=== PATIENT | female | born 1985 | race African-American/Black ===

== ENCOUNTER 2017-08-06 08:13 | Outpatient (CLI) | payer BC | END 2017-08-06 08:14 | disposition home or self-care (01) | LOC: BICULT 08:13 | PROVIDERS: ATTEND Internal Medicine Gastroenterology | DX: R10.13 Epigastric pain (principal) | CPT/HCPCS: 76700 ==

== ENCOUNTER 2018-09-04 09:47 | Day surgery (SDC) | payer BC ==
--- NOTE | 2018-09-02 11:54 | HP ---
HISTORY OF PRESENT ILLNESS: Yanira Cano is a very pleasant 32-year-old black female, 185 pounds and 65 inches, presenting with a wound near her coccyx tail bone area that is painful for her, intermittently draining. She has similar type of wounds in the right and left groin, right is slightly larger, more bothersome. This, on exam and history, seems more like hidradenitis suppurativa. She has had occasional complaints in her axilla, but on physical exam, her axillae are normal and there is no active disease. Plan at this time is to continue on oral antibiotics, Cleocin 3 times a day until next week, at which time under general anesthesia, we will plan excision of the inflammatory process near the coccyx and from the right groin. The left groin is not bothersome to her enough to her to warrant excision. She understands that we will possibly perform primary closure, but she may have an open wound that will heal secondarily. The patient has a history of 8 years ago in [place] having an incision and drainage on several occasions of pilonidal cyst. She later underwent definitive resection with the wound left only healed by secondary intention. Currently, this wound looks good. There is no indication of active pilonidal cyst disease. The patient is followed by Dr. Zimmerman. ALLERGIES: SULFA. SOCIAL HISTORY: Tobacco, none. Alcohol, none. PAST SURGICAL HISTORY: Oral surgery, pilonidal cyst incision and drainage and abscesses, definitive excision 8 years ago. PAST MEDICAL HISTORY: Asthma, anxiety, depression. REVIEW OF SYSTEMS: Ten-point noncontributory. The patient is single, works as a laboratory secretary, is a 0, para 0. PHYSICAL EXAMINATION: VITAL SIGNS: Weight 185 pounds, height 65 inches. Blood pressure 118/77, pulse 71, temperature 98.6 degrees. HEAD, EARS, EYES, NOSE AND THROAT: Unremarkable. LUNGS: Clear to auscultation. CARDIAC: Regular rate and rhythm without murmur or gallop. ABDOMEN: Soft and nontender. EXTREMITIES: Unremarkable. GENITOURINARY: In her right groin, there is approximately 3.5 to 4 cm area of hyperpigmentation scar tissue nodularity, tenderness, indicative of chronic hidradenitis. In the left groin, there is a similar lesion, although smaller and not tender. Scar tissue and thickened skin indicative of past hidradenitis disease. On her presacral area, there is a well-healed scar from previous excision of pilonidal cyst. There is no active disease in the presacral area. Near the coccyx, there is an area of thickened skin, induration, and a small sinus tract indicative of most likely hidradenitis. There are no dimple or sinus tracts otherwise. ASSESSMENT AND PLAN: Suspected hidradenitis suppurativa, both groins, right symptomatic, and coccyx area. PLAN: Excision, primary closure, possibly would be left open and healing by secondary intention. She understands the risks and benefits and consents. Job ID: [id number]
[2018-09-03 12:51] VITALS: BMI 29.4
[2018-09-04] MEDS ORDERED: Levofloxacin 500 mg/D5W 100 ml Premix Bag ONE (10:28)
[2018-09-04] MEDS ORDERED: Ketorolac Tromethamine 30 MG/ML VIAL ONE (10:28)
[2018-09-04] MEDS ORDERED: metroNIDAZOLE 500 MG/100 ML BAG ONE (10:28)
[2018-09-04 10:30] LABS: Hemoglobin 13.9 g/dL (12.0-16.0); Mean Corpuscular HGB CONC 32.2 g/dL (32.0-36.0); Mean Corpuscular Hemoglobin 29.6 pg (27.0-31.0); Mean Platelet Volume 8.1 fL (7.4-10.4); Platelet Count 277 thou/uL (130-400); RBC Distribution Width 12.2 % (11.5-14.5); Red Blood Cell (RBC) Count 4.68 mill/uL (4.20-5.40); White Blood Cell (WBC) Count 5.3 thou/uL (4.8-10.8)
[2018-09-04 10:56] LABS: Anion Gap 13 mmol/L (10-20); BUN (Urea Nitrogen) 15 mg/dL (7.0-18.7); Calc. Creatinine Clearance 102 mL/min (70-130); Calcium 9.7 mg/dL (7.8-10.44); Carbon Dioxide 20 mmol/L (22-29); Chloride 108 mmol/L (98-107); Estimated GFR-MDRD 78; Glucose 84 mg/dL (70-105); Potassium 4.4 mmol/L (3.5-5.1); Sodium 137 mmol/L (136-145)
[2018-09-04 11:09] LABS: Band 4 % (5-11); Eosinophils 1 % (0-10); Lymphocytes 49 % (21-51); MDiff Complete? YES; Monocytes 2 % (0-10); Neutrophil 41 % (42-75); Reactive Lymphocytes 3 % (0-10)
[2018-09-04] MEDS ORDERED: Fentanyl 100 MCG/2 ML VIAL ONE ×3 (12:03→13:37)
[2018-09-04] MEDS ORDERED: Lidocaine 2% PF 5 ML VIAL ONE (12:04)
[2018-09-04] MEDS ORDERED: Bupivacaine HCl 0.5%/Epinephrine 1:200,000/PF 30 ml Vial ONE (12:04)
[2018-09-04] MEDS ORDERED: Bacitracin Zinc Ointment 30 gm TUBE ONE (12:04)
--- NOTE | 2018-09-04 13:54 | OP ---
DATE OF PROCEDURE: 09/04/2018 PREOPERATIVE DIAGNOSIS: Hidradenitis suppurativa, right groin and left groin. Right groin more symptomatic and painful and hidradenitis suppurativa of presacral-coccyx area. ANESTHESIA: General, local of 0.5% Marcaine with epinephrine 30 mL mixed with 2% Xylocaine 10 mL. PROCEDURES PERFORMED: Excision of hidradenitis suppurativa, right groin 4.5 cm incision layer closure. Excision of hidradenitis suppurativa, sacral coccyx area 3 cm incision layer closure. ANESTHESIA: General. DESCRIPTION OF PROCEDURE: The patient was taken to the operating room, where under general anesthesia in the dorsal lithotomy position, right groin was clipped of hair, prepared with ChloraPrep and draped in routine fashion. The scar tissue and indurated area with a small sinus tract were excised. There was no evidence of residual disease. Hemostasis gained with the cautery. Local anesthetic was infiltrated into the skin and subcutaneous tissue. Subcutaneous tissue was approximated with 3-0 Monocryl, skin with subdermal 4-0 Monocryl, and [place] glue applied. The patient was then placed in the right lateral decubitus position, properly positioned with an axillary roll on a el[place] bag. The presacral area was prepared with ChloraPrep and draped in routine fashion. Incision was made elliptically excising the indurated tissue with small sinus tract near the tip of the coccyx. Elliptical incision was made excising skin and subcutaneous tissue. There was a small cystic structure beneath it was excise. All specimens were submitted to Pathology. Hemostasis gained with the cautery. Local anesthetic was infiltrated in the skin and subcutaneous tissue. Subcutaneous tissue was approximated with 3-0 Monocryl, skin with subdermal 4-0 Monocryl, a 3 cm incision layer closure. Dermabond was applied. Job ID: [id number]
[2018-09-04] MEDS ORDERED: Ondansetron PF 4 MG/2 ML Vial ONE (16:25)
[2018-09-04] MEDS ORDERED: Rocuronium Bromide 10 MG/ML (10ML VIAL) ONE (16:25)
[2018-09-04] MEDS ORDERED: Glycopyrrolate 0.2 MG/ML 5 ML SYRINGE ONE (16:25)
[2018-09-04] MEDS ORDERED: Dexamethasone 20 MG/5 ML VIAL ONE (16:25)
[2018-09-04] MEDS ORDERED: Lidocaine 1% PF 5 ML VIAL ONE (16:25)
[2018-09-04] MEDS ORDERED: PROPOFOL 200 MG/20 ML VIAL ONE (16:25)
== END 2018-09-04 14:46 | disposition home or self-care (01) ==
LOC: SDC 09:47
PROVIDERS: ATTEND Specialist
PROC: 0JBC0ZZ Excision of Pelvic Region Subcutaneous Tissue and Fascia, Open Approach (ICD-10-PCS; principal; 2018-09-04)
PROC: 0JB90ZZ Excision of Buttock Subcutaneous Tissue and Fascia, Open Approach (ICD-10-PCS; principal; 2018-09-04)
DX: L73.2 Hidradenitis suppurativa (principal); L72.0 Epidermal cyst; J45.909 Unspecified asthma, uncomplicated; F41.9 Anxiety disorder, unspecified; F32.9 Major depressive disorder, single episode, unspecified; Z88.2 Allergy status to sulfonamides; Z79.51 Long term (current) use of inhaled steroids; Z79.2 Long term (current) use of antibiotics; Z79.899 Other long term (current) drug therapy
CPT/HCPCS: 80048; 85025; 88304; J0131; J0670; J1100; J1885; J1956; J2001; J2405; J2704; J3010